=== PATIENT | female | born 1970 | race Two or more races ===

== ENCOUNTER 2024-08-13 17:45 | Emergency (ER) | payer OTHER ==
[~2024-08-13] VITALS: Ht 170.2 cm; Wt 90.7 kg
[2024-08-13] MEDS ORDERED: ZEPBOUND10 MG/0.5 SQ (17:51)
== END 2024-08-13 20:29 | disposition home or self-care (01) ==
LOC: ER 17:46
DX: S92.302A Fracture of unspecified metatarsal bone(s), left foot, initial encounter for closed fracture (principal); W19.XXXA Unspecified fall, initial encounter; Y93.89 Activity, other specified; Y92.89 Other specified places as the place of occurrence of the external cause; Y99.8 Other external cause status; Z91.040 Latex allergy status